=== PATIENT | male | born 1970 | race American Indian/Alaskan Native ===

== ENCOUNTER 2020-02-14 13:55 | Emergency (ER) | payer SELFPAY ==
[2020-02-14] MEDS ORDERED: ASPIRIN 325 MG TAB PO ONE (14:12)
--- NOTE | 2020-02-14 14:35 | XRay Report ---
CHEST 1 VIEW INDICATION: Chest Pain. COMPARISON: None. FINDINGS: Support devices: None. Heart: Mildly enlarged. Lungs/Pleura: Blunting of the right costophrenic angle may be due to trace right effusion. No pneumot horax. There is mild atelectasis in the bases. IMPRESSION: 1. Cardiomegaly with trace right pleural effusion. Mild atelectatic changes in the bases. Signer Name: Jose Diez MD Signed: 02/14/2020 2:30 PM Workstation Name: [id number]
--- NOTE | 2020-02-14 14:35 | Emergency Department Report ---
HPI - General Chief Complaint: Arrhythmia/Palpitations Time Seen by Provider: 02/14/20 14:19 - HPI HPI: Room 20 The patient is a 49-year-old male present with a chief complaint of heart palpitations and frequently falling asleep. Patient states she is improved meeting at a detox facility for alcohol. The patient states 2 hours prior to arrival he felt as though his heart was fluttering. Patient currently denies the sensation. Patient states he also came to the emergency department because he was falling asleep frequently during the group meeting. Patient denies any recent drug use ED Past Medical Hx - Past Medical History Previous Medical History?: Yes Hx Hypertension: Yes Hx HIV: Yes (no therapy x7 months. Unknown CD4 count) Additional medical history: ETOH Abuse - Family History Family history: no significant - Social History Smoking Status: Current Every Day Smoker Substance Use Type: Alcohol - Medications Home Medications: Home Medications Medication Instructions Recorded Confirmed Last Taken Type Emtricitabin/Tenofovir [TRUVADA 200 - 300 mg PO DAILY 08/30/13 09/01/13 Unknown History 200-300 mg] Etravirine [Intelence] 200 mg PO BID 08/30/13 08/31/13 Unknown History lisinopriL [Zestril] 20 mg PO QDAY 08/30/13 08/31/13 Unknown History Aspirin 325 mg PO QDAY #30 tablet 09/03/13 Unknown Rx Furosemide [Lasix] 40 mg PO DAILY #30 tablet 09/03/13 Unknown Rx Potassium Chloride [K-Dur] 20 meq PO BID #60 tablet 09/03/13 Unknown Rx Spironolactone [Aldactone] 25 mg PO QDAY #30 tablet 09/03/13 Unknown Rx hydrALAZINE [Apresoline TAB] 50 mg PO Q6H #120 tablet 09/03/13 Unknown Rx lisinopriL [Zestril TAB] 40 mg PO QDAY #30 tablet 09/03/13 Unknown Rx ED Review of Systems ROS: Stated complaint: HEART PALPITATONS Other details as noted in HPI Constitutional: no symptoms reported Respiratory: no symptoms reported Cardiovascular: palpitations Endocrine: no symptoms reported Physical Exam - Physical Exam Vital Signs: Vital Signs 02/14/20 02/14/20 02/14/20 14:09 14:13 14:14 Temperature 97.7 F Pulse Rate 102 H 99 H Respiratory 20 20 11 L Rate Blood Pressure 101/73 101/73 O2 Sat by Pulse 100 100 95 Oximetry 02/14/20 14:15 Temperature Pulse Rate 98 H Respiratory 13 Rate Blood Pressure 110/73 O2 Sat by Pulse Oximetry Physical Exam: GENERAL: The patient is well-developed well-nourished male lying on stretcher sl eeping but easily awakened by voice. [] HEENT: Normocephalic. Atraumatic. Extraocular motions are intact. Patient has moist mucous membranes. NECK: Supple. Trachea midline CHEST/LUNGS: Clear to auscultation. There is no respiratory distress noted. HEART/CARDIOVASCULAR: Regular. There is no tachycardia. There is no gallop rub or murmur. ABDOMEN: Abdomen is soft, nontender. Patient has normal bowel sounds. There is no abdominal distention. SKIN: There is no rash. There is no edema. There is no diaphoresis. NEURO: The patient is awake, alert, and oriented. The patient is cooperative. The patient has no focal neurologic deficits. The patient has normal speech. Cranial nerves II through XII grossly intact MUSCULOSKELETAL: There is no evidence of acute injury. ED Course Vital Signs 02/14/20 02/14/20 02/14/20 14:09 14:13 14:14 Temperature 97.7 F Pulse Rate 102 H 99 H Respiratory 20 20 11 L Rate Blood Pressure 101/73 101/73 O2 Sat by Pulse 100 100 95 Oximetry 02/14/20 14:15 Temperature Pulse Rate 98 H Respiratory 13 Rate Blood Pressure 110/73 O2 Sat by Pulse Oximetry ED Medical Decision Making - Lab Data Result diagrams: 02/14/20 14:33 02/14/20 14:33 Laboratory Tests 02/14/20 02/14/20 02/14/20 14:33 14:33 14:33 WBC 4.8 RBC 3.12 L Hgb 10.5 L Hct 31.7 L MCV 102 H MCH 34 H MCHC 33 RDW 16.1 H Plt Count 96 L Lymph % (Auto) 25.8 [place] % (Auto) 11.5 H Eos % (Auto) 1.8 Baso % (Auto) 1.7 Lymph # 1.3 [place] # 0.6 Eos # 0.1 Baso # 0.1 Seg Neutrophils % 59.2 Seg Neutrophils # 2.9 Sodium 138 Potassium 3.9 Chloride 96.4 L Carbon Dioxide 24 Anion Gap 22 BUN 94 H Creatinine 4.7 H Estimated GFR 16 BUN/Creatinine Ratio 20 Glucose 104 H Calcium 8.5 Magnesium 1.10 L Ammonia Troponin T 0.024 TSH Free T4 Urine Opiates Screen Urine Methadone Screen Ur Barbiturates Screen Ur Phencyclidine Scrn Ur Amphetamines Screen U Benzodiazepines Scrn Urine Cocaine Screen U Marijuana (THC) Screen Drugs of Abuse Note Plasma/Serum Alcohol 02/14/20 02/14/20 02/14/20 14:33 14:33 14:33 WBC RBC Hgb Hct MCV MCH MCHC RDW Plt Count Lymph % (Auto) [place] % (Auto) Eos % (Auto) Baso % (Auto) Lymph # [place] # Eos # Baso # Seg Neutrophils % Seg Neutrophils # Sodium Potassium Chloride Carbon Dioxide Anion Gap BUN Creatinine Estimated GFR BUN/Creatinine Ratio Glucose Calcium Magnesium Ammonia 61.0 H Troponin T TSH 2.730 Free T4 1.20 Urine Opiates Screen Urine Methadone Screen Ur Barbiturates Screen Ur Phencyclidine Scrn Ur Amphetamines Screen U Benzodiazepines Scrn Urine Cocaine Screen U Marijuana (THC) Screen Drugs of Abuse Note Plasma/Serum Alcohol < 0.01 02/14/20 15:40 WBC RBC Hgb Hct MCV MCH MCHC RDW Plt Count Lymph % (Auto) [place] % (Auto) Eos % (Auto) Baso % (Auto) Lymph # [place] # Eos # Baso # Seg Neutrophils % Seg Neutrophils # Sodium Potassium Chloride Carbon Dioxide Anion Gap BUN Creatinine Estimated GFR BUN/Creatinine Ratio Glucose Calcium Magnesium Ammonia Troponin T TSH Free T4 Urine Opiates Screen Presumptive negative Urine Methadone Screen Presumptive negative Ur Barbiturates Screen Presumptive negative Ur Phencyclidine Scrn Presumptive negative Ur Amphetamines Screen Presumptive negative U Benzodiazepines Scrn Presumptive negative Urine Cocaine Screen Presumptive negative U Marijuana (THC) Screen Presumptive negative Drugs of Abuse Note Disclamer Plasma/Serum Alcohol - EKG Data -: EKG Interpreted by Ar EKG shows normal: sinus rhythm Rate: normal - EKG Data When compared to previous EKG there are: previous EKG unavailable Interpretation: nonspecific ST-T wave keny (T wave inversions in leads II, 3, aVF, V5, V6) - Radiology Data Radiology results: report reviewed (CT head), image reviewed (CT head) [facility] [address] [place] [address] Cat Scan Report Signed Patient: TEMO GONZALEZ MR#: [id number] : 1 06/27/1969 Acct:[id number] Age/Sex: 49 / M ADM Date: 02/14/20 Loc: ED Attending Dr: Ordering Physician: CARLOS LOO MD Date of Service: 02/14/20 Procedure(s): CT head/brain wo con Accession Number(s): [id number] cc: CARLOS LOO MD CT head/brain wo con INDICATION / CLINICAL INFORMATION: 49 years Male; Altered mental status. TECHNIQUE: Routine CT head without contrast. All CT scans at this location are performed using CT dose reduction for ALARA by means of automated exposure control. COMPARISON: None. FINDINGS: BRAIN / INTRACRANIAL CONTENTS: No acute hemorrhage, mass effect, midline shift, hydrocephalus, or acute, large territorial infarct. No chronic infarct or atrophy appreciated. No significant white matter abnormality. CRANIOCERVICAL JUNCTION: No significant abnormality. ORBITS: No significant abnormality of visualized orbits. SINUSES / MASTOIDS: Small mucous retention cyst/polyp is seen in the right maxillary antrum. ADDITIONAL FINDINGS: None. IMPRESSION: 1. No focal mass, hemorrhage, hydrocephalus, or acute, large territorial infarct. Signer Name: Margarito Blanton MD, III Signed: 02/14/2020 4:01 PM Workstation Name: [id number] Transcribed By: HR Dictated By: Margarito Blanton MD Electronically Authenticated By: Margarito Blanton MD Signed Date/Time: 02/14/20 1601 DD/ 1559 TD/TT: - Differential Diagnosis Substance abuse, ICH, hyperammonemia, dysrhythmia, hypothyroidism Critical care attestation.: If time is entered above; I have spent that time in minutes in the direct care of this critically ill patient, excluding procedure time. ED Disposition Clinical Impression: Hypomagnesemia, Hyperammonemia, Alcohol abuse Disposition: OP ADMIT IP TO THIS HOSP Is pt being admited?: Yes Does the pt Need Aspirin: No Condition: Fair Referrals: [facility] MD EVANGELISTA [Primary Care Provider] - 3-5 Days Time of Disposition: 18:06 (Hospitalist paged (Dr. Manzano))
[2020-02-14 15:04] LABS: Basophils # (Auto) 0.1 K/mm3 (0.0-0.1); Basophils % (Auto) 1.7 % (0.0-1.8); Eosinophils # (Auto) 0.1 K/mm3 (0.0-0.4); Eosinophils % (Auto) 1.8 % (0.0-4.3); Hematocrit 31.7 % (35.5-45.6); Hemoglobin 10.5 gm/dl (11.8-15.2); Lymphocytes # (Auto) 1.3 K/mm3 (1.2-5.4); Lymphocytes % (Auto) 25.8 % (13.4-35.0); Mean Corpuscular HGB Conc 33 % (32-34); Mean Corpuscular Volume 102 fl (84-94); Monocytes # (Auto) 0.6 K/mm3 (0.0-0.8); Monocytes % (Auto) 11.5 % (0.0-7.3); Red Blood Count 3.12 M/mm3 (3.65-5.03); Red Cell Distribution Width 16.1 % (13.2-15.2)
[2020-02-14 15:06] LABS: Platelet Count 96 K/mm3 (140-440)
[2020-02-14 15:14] LABS: Calcium 8.5 mg/dL (8.4-10.2)
[2020-02-14 15:24] LABS: Free T4 (Free Thyroxine) 1.2 ng/dL (0.76-1.46)
[2020-02-14 15:59] LABS: Amphetamine Screen,Urine PRESUMPTIVE NEGATIVE; Benzodiazepines Screen,Urine PRESUMPTIVE NEGATIVE; Cannabinoid Screen,Urine PRESUMPTIVE NEGATIVE; Cocaine Screen,Urine PRESUMPTIVE NEGATIVE; Methadone Screen,Urine PRESUMPTIVE NEGATIVE; Opiate Screen,Urine PRESUMPTIVE NEGATIVE
--- NOTE | 2020-02-14 16:05 | Cat Scan Report ---
CT head/brain wo con INDICATION / CLINICAL INFORMATION: 49 years Male; Altered mental status. TECHNIQUE: Routine CT head without contrast. All CT scans at this location are performed using CT dos e reduction for ALARA by means of automated exposure control. COMPARISON: None. FINDINGS: BRAIN / INTRACRANIAL CONTENTS: No acute hemorrhage, mass effect, midline shift, hydrocephalus, or acu te, large territorial infarct. No chronic infarct or atrophy appreciated. No significant white matter abnormality. CRANIOCERVICAL JUNCTION: No significant abnormality. ORBITS: No significant abnormality of visualized orbits. SINUSES / MASTOIDS: Small mucous retention cyst/polyp is seen in the right maxillary antrum. ADDITIONAL FINDINGS: None. IMPRESSION: 1. No focal mass, hemorrhage, hydrocephalus, or acute, large territorial infarct. Signer Name: Margarito Blanton MD, III Signed: 02/14/2020 4:01 PM Workstation Name: [id number]
[2020-02-14] MEDS ORDERED: MAGNESIUM SULFATE 2 GM/50 ML BAG IV ONE (17:51)
[2020-02-14] MEDS ORDERED: LACTULOSE 20 GM/30 ML ORAL LIQD PO ONE (17:51)
--- NOTE | 2020-02-14 17:54 | Ultrasound Report ---
ULTRASOUND SCROTUM INDICATION: Scrotal edema. COMPARISON None available. FINDINGS -- RIGHT TESTIS: Size: 3.3 x 2.1 x 1.7 cm. Echotexture: Normal. Color Doppler Flow: Normal. Lesions: None. EPIDIDYMIS: Size: Normal. Echotexture: Normal. Color Doppler Flow: Normal. Lesions: None. Hydrocele: None. Varicocele: None. Additional Findings: None. FINDINGS -- LEFT TESTIS: Size: 2.0 x 1.9 x 1.1 cm. Echotexture: Normal. Color Doppler Flow: Normal. Lesions: None. EPIDIDYMIS: Size: Normal. Echotexture: Normal. Color Doppler Flow: Normal. Lesions: None. Hydrocele: None. Varicocele: None. Additional Findings: None. There is extensive scrotal edema. IMPRESSION: 1. Extensive diffuse scrotal edema. 2. There is symmetric but diminutive flow within both testicles which appear somewhat atrophied, left greater than right. Signer Name: Jose Diez MD Signed: 02/14/2020 5:50 PM Workstation Name: [id number]
[2020-02-14 21:54] VITALS: BP 110/62
== END 2020-02-14 21:54 | disposition admitted as inpatient to this hospital (09) ==
LOC: ED 13:55
DX: E83.42 Hypomagnesemia (principal); E72.20 Disorder of urea cycle metabolism, unspecified; F10.10 Alcohol abuse, uncomplicated; F17.200 Nicotine dependence, unspecified, uncomplicated; I10 Essential (primary) hypertension; Z21 Asymptomatic human immunodeficiency virus [HIV] infection status; Z91.041 Radiographic dye allergy status
CPT/HCPCS: 36415; 70450; 71045; 80048; 80307; 82140; 83735; 84439; 84443; 84484; 85025; 93005; 93975; 96365; 99285; J3475; 80320; G0480